=== PATIENT | female | born 1990 | race Hispanic/Latino ===

== ENCOUNTER 2024-04-07 10:50 | Inpatient (IN) | payer OTHER ==
[2024-04-07] VITALS (16 sets, daily range): BP systolic 139–170; BP diastolic 78–100; PULSE 76–88; RESP 14–22; O2SAT 97
[~2024-04-07] VITALS: Ht 172.7 cm; Wt 106.6 kg
[2024-04-07 11:34] LABS: BASOPHILS # (AUTO) 0.05 K/uL (0.00-0.20); BASOPHILS % (AUTO) 0.3 % (0.0-5.0); EOSINOPHILS % (AUTO) 0.5 % (0.0-8.0); HEMATOCRIT 44.3 % (36-48); IMMATURE GRANULOCYTE ABSOLUTE 0.12 K/uL (0-1); LYMPHOCYTES # (AUTO) 2.4 K/uL (1.0-4.8); MEAN CORPUSCULAR HEMOGLOBIN 29.3 pg (27.0-33.0); MEAN CORPUSCULAR HGB CONC 34.5 g/dL (32.0-36.0); MEAN CORPUSCULAR VOLUME 84.7 fL (79-99); MONOCYTES # (AUTO) 0.8 K/uL (0.1-1.0); MONOCYTES % (AUTO) 4.3 % (3.0-13.0); NEUTROPHILS # (AUTO) 15.3 K/uL (1.8-7.7); NEUTROPHILS % (AUTO) 81.3 % (40.0-77.0); PLATELET COUNT (AUTO) 282 K/uL (130-400); RED BLOOD CELL COUNT(AUTO) 5.23 MIL/uL (4.00-5.50); RED CELL DISTRIBUTION WIDTH 12.7 % (11.0-15.5); WHITE BLOOD COUNT (AUTO) 18.8 K/uL (4.8-10.8)
[2024-04-07 11:48] LABS: ALBUMIN 3.6 g/dL (3.5-5.0); BILIRUBIN,TOTAL 0.8 mg/dL (0.2-1.0); CREATININE 0.7 mg/dL (0.5-1.0); POTASSIUM 3.2 mmol/L (3.5-5.1); TOTAL PROTEIN, SERUM 7.7 g/dL (6.0-8.3)
[2024-04-07] MEDS: KETOROLAC 30MG VIAL (30MG/ML) IVP ONE (12:52)
[2024-04-07] MEDS: ONDANSETRON 4MG INJ IVP ONE (12:52)
[2024-04-07] MEDS ORDERED: IOHEXOL 350 MG/ML 100ML INFUS..BTL IV ONE (13:02)
[2024-04-07 14:31] LABS: APPEARANCE,URINE CLEAR (CLEAR); BILIRUBIN,URINE NEGATIVE (NEGATIVE); COLOR,URINE LIGHT-YELLOW (YELLOW); GLUCOSE, URINE (UA) NEGATIVE (NEGATIVE); KETONES,URINE NEGATIVE (NEGATIVE); LEUKOCYTE ESTERASE ,URINE NEGATIVE Leu/uL (NEGATIVE); NITRATE,URINE NEGATIVE (NEGATIVE); OCCULT BLOOD,URINE NEGATIVE (NEGATIVE); PROTEIN,URINE NEGATIVE (NEGATIVE); UROBILINOGEN,URINE 0.2 mg/dL (0.2-1.0)
[2024-04-07 14:32] LABS: ADD UA MICROSCOPIC YES
[2024-04-07 14:34] LABS: SQUAMOUS EPITHELIAL CELL,UR RARE /HPF (0-2); WBC,URINE 0-1 /HPF (0-1)
[2024-04-07] MEDS: ZOSYN 3.375GM +NS 50ML IVPB ONE (14:53)
[2024-04-07] MEDS: 0.9%NACL 1000ML 1,000 ML IV ONE (14:53)
[2024-04-07] MEDS ORDERED: MORPHINE 2 MG SYG IVP PRN (15:00)
[2024-04-07] MEDS ORDERED: KETOROLAC 15MG/ML VIAL (15MG/ML) IV PRN (15:00)
[2024-04-07] MEDS ORDERED: HYDRALAZINE 20MG/ML VIAL IV PRN (15:00)
[2024-04-07 16:20] LABS: INR 0.98 (0.85-1.15); PROTHROMBIN TIME 11.6 SEC (9.6-11.6)
[2024-04-07 16:21] LABS: PARTIAL THROMBOPLASTIN TIME 25.9 SEC (26.3-35.5)
[2024-04-07] MEDS: LACTATED RINGERS 1000ML 1,000 ML IV SCH (17:10)
[2024-04-07] MEDS ORDERED: BUPIVACAINE/PF 0.25% 30ML VIAL IJ ONE (20:36)
[2024-04-07] MEDS ORDERED: CEFAZOLIN SODIUM 1 GM VIAL ONE (20:36)
[2024-04-07] MEDS ORDERED: LIDOCAINE 1%-EPI 1:100,000 20 ML VIAL ONE (20:37)
[2024-04-07] MEDS ORDERED: LIDOCAINE PF 100MG/5ML (2%) SYRINGE 5ML ONE (20:40)
[2024-04-07] MEDS ORDERED: MIDAZOLAM HCL 1 MG/ML 2ML VIAL ONE (20:40)
[2024-04-07] MEDS ORDERED: PROPOFOL 10 MG/ML 20ML VIAL IV ONE (20:40)
[2024-04-07] MEDS ORDERED: SUCCINYLCHOLINE CHLORIDE 20 MG/ML 10 ML VIAL ONE (20:41)
[2024-04-07] MEDS ORDERED: ROCURONIUM BROMIDE 10MG/1ML 5ML VL ONE ×2 (20:41→21:16)
[2024-04-07] MEDS ORDERED: FENTANYL CITRATE PF 50 MCG/1 ML 2ML VIAL ONE ×3 (20:41→21:42)
[2024-04-07] MEDS: LIDOCAINE 1%-EPI 1:100,000 20 ML VIAL IJ ONE (20:50)
[2024-04-07] MEDS ORDERED: 0.9%NACL 50ML IV SCH (21:00)
[2024-04-07] MEDS ORDERED: ONDANSETRON 4MG INJ ONE (21:58)
[2024-04-07] MEDS: ONDANSETRON 4MG INJ ONE (23:04)
[2024-04-07] MEDS: MEPERIDINE-PF 25 MG/ML SYG ONE ×2 (23:05→23:06)
[2024-04-07] MEDS: ACETAMINOPHEN 1,000 MG/100 ML VIAL IV ONE (23:06)
[2024-04-07] MEDS: FENTANYL CITRATE PF 50 MCG/1 ML 2ML VIAL ONE (23:43)
[2024-04-08] VITALS (13 sets, daily range): BP systolic 120–154; BP diastolic 68–101; PULSE 70–91; RESP 18–20; O2SAT 95–99
[2024-04-08] MEDS ORDERED: SEMA1PEN3 SQ (00:54)
[2024-04-08] MEDS ORDERED: AMLO5TAB4 PO (00:54)
[2024-04-08] MEDS ORDERED: LOSA1TAB54 PO (00:54)
[2024-04-08] MEDS ORDERED: ACETAMINOPHEN 325 MG TAB PO PRN (01:00)
[2024-04-08] MEDS ORDERED: HYDROMORPHONE 1 MG INJ IVP PRN (01:00)
[2024-04-08] MEDS: ZOSYN 3.375GM +NS 50ML IVPB SCH (04:33)
[2024-04-08 05:41] LABS: BASOPHILS # (AUTO) 0.02 K/uL (0.00-0.20); BASOPHILS % (AUTO) 0.1 % (0.0-5.0); EOSINOPHILS # (AUTO) 0.01 K/uL (0.00-0.70); EOSINOPHILS % (AUTO) 0.1 % (0.0-8.0); HEMATOCRIT 39.3 % (36-48); IMMATURE GRANULOCYTE ABSOLUTE 0.08 K/uL (0-1); LYMPHOCYTES # (AUTO) 2.2 K/uL (1.0-4.8); LYMPHOCYTES % (AUTO) 14.7 % (21.0-51.0); MEAN CORPUSCULAR HEMOGLOBIN 29.5 pg (27.0-33.0); MEAN CORPUSCULAR HGB CONC 33.1 g/dL (32.0-36.0); MEAN CORPUSCULAR VOLUME 89.1 fL (79-99); MONOCYTES % (AUTO) 6.8 % (3.0-13.0); NEUTROPHILS # (AUTO) 11.5 K/uL (1.8-7.7); NEUTROPHILS % (AUTO) 77.8 % (40.0-77.0); PLATELET COUNT (AUTO) 246 K/uL (130-400); RED BLOOD CELL COUNT(AUTO) 4.41 MIL/uL (4.00-5.50); RED CELL DISTRIBUTION WIDTH 12.8 % (11.0-15.5); WHITE BLOOD COUNT (AUTO) 14.8 K/uL (4.8-10.8)
[2024-04-08 05:45] LABS: CREATININE 0.6 mg/dL (0.5-1.0); POTASSIUM 3.4 mmol/L (3.5-5.1)
[2024-04-08] MEDS: OXYCODONE/ACETAMIN 5/325MG TAB PO PRN (11:57)
[2024-04-09 04:00] VITALS: BP 115/65; PULSE 82; RESP 20
[2024-04-09 08:00] VITALS: BP 155/81; PULSE 87; RESP 17
[2024-04-09] MEDS: SUGAMMADEX SODIUM 200 MG/2 ML VIAL IV ONE (08:49)
[2024-04-09 08:51] VITALS: O2SAT 93; O2SAT 96
[2024-04-09] MEDS: LOSARTAN/HYDROCHLOROTHIAZIDE 50-12.5MG TABLET PO SCH (08:51)
[2024-04-09] MEDS: POTASSIUM CHLORIDE 20MEQ/100ML 100 ML IV PRN (08:51)
[2024-04-09] MEDS: AMLODIPINE 5 MG TAB PO SCH (08:51)
[2024-04-09] MEDS: LACTULOSE 20 GM/30 ML UDCUP PO PRN (08:51)
[2024-04-09 12:00] VITALS: BP 136/82; PULSE 89; RESP 17
[2024-04-09 13:26] LABS: BASOPHILS # (AUTO) 0.02 K/uL (0.00-0.20); BASOPHILS % (AUTO) 0.2 % (0.0-5.0); EOSINOPHILS # (AUTO) 0.06 K/uL (0.00-0.70); EOSINOPHILS % (AUTO) 0.6 % (0.0-8.0); HEMATOCRIT 37.9 % (36-48); IMMATURE GRANULOCYTE ABSOLUTE 0.07 K/uL (0-1); LYMPHOCYTES # (AUTO) 2.2 K/uL (1.0-4.8); LYMPHOCYTES % (AUTO) 21.8 % (21.0-51.0); MEAN CORPUSCULAR HEMOGLOBIN 29.4 pg (27.0-33.0); MEAN CORPUSCULAR HGB CONC 33.8 g/dL (32.0-36.0); MEAN CORPUSCULAR VOLUME 86.9 fL (79-99); MONOCYTES % (AUTO) 9.4 % (3.0-13.0); NEUTROPHILS # (AUTO) 6.9 K/uL (1.8-7.7); NEUTROPHILS % (AUTO) 67.3 % (40.0-77.0); PLATELET COUNT (AUTO) 240 K/uL (130-400); RED BLOOD CELL COUNT(AUTO) 4.36 MIL/uL (4.00-5.50); RED CELL DISTRIBUTION WIDTH 13.2 % (11.0-15.5); WHITE BLOOD COUNT (AUTO) 10.3 K/uL (4.8-10.8)
[2024-04-09 13:36] LABS: CREATININE 0.6 mg/dL (0.5-1.0); POTASSIUM 3.6 mmol/L (3.5-5.1)
[2024-04-09 13:41] LABS: ALBUMIN 2.7 g/dL (3.5-5.0); BILIRUBIN,TOTAL 0.6 mg/dL (0.2-1.0); TOTAL PROTEIN, SERUM 6.7 g/dL (6.0-8.3)
[2024-04-09] MEDS: BISACODYL 10 MG SUPP.RECT RC ONE (15:41)
[2024-04-09 16:00] VITALS: BP 134/79; PULSE 89; RESP 18
[2024-04-09 20:00] VITALS: BP 137/84; PULSE 82; RESP 18
[2024-04-09] MEDS: ONDANSETRON 4MG INJ IVP PRN (23:11)
[2024-04-10] VITALS (8 sets, daily range): BP systolic 109–153; BP diastolic 48–93; PULSE 76–100; RESP 10–18; O2SAT 95
[2024-04-10 05:42] LABS: BASOPHILS # (AUTO) 0.02 K/uL (0.00-0.20); BASOPHILS % (AUTO) 0.2 % (0.0-5.0); EOSINOPHILS # (AUTO) 0.03 K/uL (0.00-0.70); EOSINOPHILS % (AUTO) 0.2 % (0.0-8.0); HEMATOCRIT 39.4 % (36-48); IMMATURE GRANULOCYTE ABSOLUTE 0.07 K/uL (0-1); LYMPHOCYTES # (AUTO) 2.1 K/uL (1.0-4.8); MEAN CORPUSCULAR HEMOGLOBIN 29.3 pg (27.0-33.0); MEAN CORPUSCULAR HGB CONC 33.5 g/dL (32.0-36.0); MEAN CORPUSCULAR VOLUME 87.4 fL (79-99); MONOCYTES # (AUTO) 0.9 K/uL (0.1-1.0); MONOCYTES % (AUTO) 7.2 % (3.0-13.0); NEUTROPHILS # (AUTO) 9.5 K/uL (1.8-7.7); NEUTROPHILS % (AUTO) 74.8 % (40.0-77.0); PLATELET COUNT (AUTO) 274 K/uL (130-400); RED BLOOD CELL COUNT(AUTO) 4.51 MIL/uL (4.00-5.50); WHITE BLOOD COUNT (AUTO) 12.6 K/uL (4.8-10.8)
[2024-04-10 05:55] LABS: ALBUMIN 2.7 g/dL (3.5-5.0); BILIRUBIN,TOTAL 0.9 mg/dL (0.2-1.0); CREATININE 0.7 mg/dL (0.5-1.0); POTASSIUM 3.6 mmol/L (3.5-5.1); TOTAL PROTEIN, SERUM 7.1 g/dL (6.0-8.3)
[2024-04-10] MEDS: DOCUSATE SODIUM 100 MG CAP PO ONE (09:17)
[2024-04-10] MEDS: CETIRIZINE HCL 5 MG TABLET PO SCH (10:21)
[2024-04-10] MEDS ORDERED: POTASSIUM CHLORIDE 10% ELIXIR 20 MEQ/15 ML UDCUP PO PRN (12:00)
[2024-04-10] MEDS: FLUTICASONE PROPIONATE 50MCG/SPRAY 16 GM BOTTLE EN SCH (12:28)
[2024-04-10] MEDS: KCL 20 MEQ ERTAB PO PRN (12:28)
[2024-04-10] MEDS ORDERED: AMOX1TAB16 PO ×2 (13:47→13:54)
== END 2024-04-10 15:40 | disposition home or self-care (01) | DRG 854 ==
LOC: EDH 10:54 → EDHIP 14:32 → 3BH 20:47
PROVIDERS: ADMIT Internal Medicine; ATTEND Internal Medicine
PROC: 0DTJ4ZZ Resection of Appendix, Percutaneous Endoscopic Approach (ICD-10-PCS; principal; 2024-04-07 20:46)
DX: A41.9 Sepsis, unspecified organism (principal); E87.1 Hypo-osmolality and hyponatremia; K35.80 Unspecified acute appendicitis; E87.6 Hypokalemia; E66.9 Obesity, unspecified; E86.0 Dehydration; I10 Essential (primary) hypertension; Z68.37 Body mass index [BMI] 37.0-37.9, adult; Z98.891 History of uterine scar from previous surgery; Z90.49 Acquired absence of other specified parts of digestive tract
CPT/HCPCS: 36415; 74018; 74177; 76856; 80048; 80053; 81001; 82948; 83605; 83690; 84703; 85025; 85610; 85730; 88304; 93005; 96365; 96366; 96375; A4344; G0378; J0330; J0690; J1885; J2001; J2175; J2250; J2405; J2543; J2704; J3010; J3480; J3490; J7030; J7120; Q9967; A4216; A4222; A4223; A4452; A4649; A4930; C1769; J0665